=== PATIENT | female | born 1955 | race Caucasian/White ===

== ENCOUNTER 2020-05-09 23:05 | Emergency (ER) | payer MEDICARE, BC ==
[2020-05-09 23:26] VITALS: BP 140/56; PULSE 59
--- NOTE | 2020-05-09 23:30 | EDM.PDOC ---
ED HPI GENERAL MEDICAL PROBLEM - General Chief Complaint: General Time Seen by Provider: 05/09/20 23:05 Source of Information: Reports: Patient, EMS History Limitations: Reports: No Limitations - History of Present Illness INITIAL COMMENTS - FREE TEXT/NARRATIVE: Pt. was found sitting in her car with a decreased level of consciousness. There was no apparent accident. EMS was summoned. Pt. was found to have a blood sugar in the 30s. IV access was established. Pt. was given an amp of D50. Pt. regained consciousness and was able to answer all questions appropriately. Pt. denies any complaints. No chest pain or shortness of breath. Denies any trauma. Pt. denies any fever or chills. Her only complaint is that she wants to go home and take a shower, as she was diaphoretic during this event. Pt. is currently on three day a week hemodialysis. She states that she is due for her dialysis run tomorrow AM. Onset: Today Location: Reports: Generalized - Related Data Allergies Allergy/AdvReac Type Severity Reaction Status Date / Time No Known Allergies Allergy Verified 05/09/20 22:52 Home Meds: Home Meds Levothyroxine 50 mcg PO ACBREAKFAST 10/05/15 [History] Multivit,Calc,Mins/Iron/Folic [Women's Daily Formula Caplet] 1 tab PO DAILY 02/29/16 [History] carvediloL [Coreg] 25 mg PO BIDAC 02/29/16 [History] Ciclopirox [Penlac] 3.3 ml TP BEDTIME 05/09/20 [History] Darbepoetin Rj [Aranesp] 25 mcg IJ ASDIRECTED 05/09/20 [History] Dextran 70/Hypromellose [Artificial Tears] 1 each OP Q4H PRN 05/09/20 [History] Escitalopram Oxalate [Lexapro] 10 mg PO DAILY 05/09/20 [History] Furosemide 80 mg PO DAILY 05/09/20 [History] Insulin Aspart [NovoLOG] 15 - 20 unit SQ TID 05/09/20 [History] Insulin Degludec [Tresiba] 15 unit SQ BEDTIME 05/09/20 [History] Loperamide [Imodium] 2 mg PO ASDIRECTED PRN 05/09/20 [History] Sevelamer Carbonate [Renvela] 800 mg PO TID 05/09/20 [History] Sodium Ferric Gluconate Cmplex [Ferrlecit IV] 62.5 mg IV ASDIRECTED 05/09/20 [History] Triamcinolone Acetonide [Kenalog 0.1% Crm] 15 gm TOP BID 05/09/20 [History] Vit B Cmplx NO3/Fa/C/Biot/Zinc [Nephplex Rx] 1 each PO DAILY 05/09/20 [History] atorvaSTATin [Lipitor] 40 mg PO DAILY 05/09/20 [History] doxercalciferoL [Hectorol] 4 mcg IV ASDIRECTED 05/09/20 [History] lisinopriL [Lisinopril] 10 mg PO DAILY 05/09/20 [History] Past Medical History HEENT History: Reports: Epistaxis Cardiovascular History: Reports: High Cholesterol, Hypertension Other Gastrointestinal History: see previous assessment Endocrine/Metabolic History: Reports: Diabetes, Type II, Hypothyroidism Hematologic History: Reports: Anemia, Iron Deficiency Oncologic (Cancer) History: Reports: Other (See Below) Other Oncologic History: CLL - Infectious Disease History Infectious Disease History: Reports: MRSA - Past Surgical History GI Surgical History: Reports: Cholecystectomy ED ROS GENERAL - Review of Systems Review Of Systems: See Below Constitutional: Reports: Diaphoresis HEENT: Reports: No Symptoms Respiratory: Reports: No Symptoms Cardiovascular: Reports: No Symptoms Endocrine: Reports: No Symptoms GI/Abdominal: Reports: No Symptoms : Reports: No Symptoms Musculoskeletal: Reports: No Symptoms Skin: Reports: No Symptoms Neurological: Reports: Other (See above) Psychiatric: Reports: No Symptoms Hematologic/Lymphatic: Reports: No Symptoms Immunologic: Reports: No Symptoms ED EXAM, GENERAL - Physical Exam Exam: See Below Exam Limited By: No Limitations General Appearance: Alert, WD/WN, No Apparent Distress Eye Exam: Bilateral Eye: EOMI, Normal Fundi, Normal Inspection, PERRL Nose: Normal Inspection, Normal Mucosa, No Blood Throat/Mouth: Normal Inspection, Normal Lips, Normal Teeth, Normal Gums, Normal Oropharynx, Normal Voice, No Airway Compromise Head: Atraumatic, Normocephalic Neck: Normal Inspection, Supple, Non-Tender, Full Range of Motion Respiratory/Chest: No Respiratory Distress, Lungs Clear, Normal Breath Sounds, No Accessory Muscle Use, Chest Non-Tender Cardiovascular: Normal Peripheral Pulses, Regular Rate, Rhythm, No Edema, No JVD, No Murmur Peripheral Pulses: 4+: Radial (L) GI/Abdominal: Soft, Non-Tender, No Mass (Female) Exam: Deferred Rectal (Female) Exam: Deferred Back Exam: Normal Inspection, Full Range of Motion Extremities: Normal Inspection, Normal Range of Motion, Non-Tender, No Pedal Edema, Normal Capillary Refill Neurological: Alert, Oriented, CN II-XII Intact, Normal Cognition, Normal Gait, Normal Reflexes, No Motor/Sensory Deficits Psychiatric: Normal Affect, Normal Mood Skin Exam: Warm, Dry, Intact, Normal Color, No Rash Lymphatic: No Adenopathy Course - Vital Signs Last Recorded V/S: Last Vital Signs Temp 35.7 C L 05/09/20 23:05 Pulse 59 L 05/09/20 23:05 Resp 12 05/09/20 23:05 BP 140/56 L 05/09/20 23:05 Pulse Ox 97 05/09/20 23:05 Departure - Departure Time of Disposition: 11:36 Disposition: Home, Self-Care 01 Clinical Impression: Hypoglycemia - Discharge Information Instructions: Hypoglycemia, [id number] Referrals: PCP,Unobtain [Primary Care Provider] - Forms: ED Department Discharge Additional Instructions: Follow-up with your PCP regarding your insulin dosing. Make sure you are checking your blood sugar before meals and dosing your insulin based on your carb intake. Also, you will need to take less insulin if you are more active. Return to ER if you have any chest pain, shortness of breath, or other worrisome signs/symptoms. Sepsis Event Note (ED) - Focused Exam Vital Signs: Vital Signs Temp Pulse Resp BP Pulse Ox 05/09/20 23:05 35.7 C L 59 L 12 140/56 L 97 - Problem List Review Problem List Initiated/Reviewed/Updated: Yes - Assessment/Plan Plan: Follow-up with your PCP regarding your insulin dosing. Make sure you are checking your blood sugar before meals and dosing your insulin based on your carb intake. Also, you will need to take less insulin if you are more active. Return to ER if you have any chest pain, shortness of breath, or other worrisome signs/symptoms.
== END 2020-05-10 00:07 | disposition home or self-care (01) ==
LOC: VM.ED 23:05
DX: E11.649 Type 2 diabetes mellitus with hypoglycemia without coma (principal); E78.00 Pure hypercholesterolemia, unspecified; I10 Essential (primary) hypertension; E03.9 Hypothyroidism, unspecified; Z79.899 Other long term (current) drug therapy; Z79.4 Long term (current) use of insulin
CPT/HCPCS: 99284-GF; 99285